=== PATIENT | male | born 1970 | race Caucasian/White ===

== ENCOUNTER 2017-11-27 13:06 | Emergency (ER) | payer SELFPAY ==
--- NOTE | 2017-11-27 14:20 | EDPHYS ---
Physician Documentation [facility] Name: Bere Hurst Age: 47 yrs Sex: Male : 1970 Arrival Date: 11/27/2017 Time: 13:08 Bed 14 Private MD: ED Physician Anthony Tanner HPI: 11/27 14:21 This 47 yrs old Male presents to ER via EMS with complaints of Doesn't Feel Right. jr8 14:21 Patient arrested earlier and in custody. Was brought to ED because he said he had high jr8 blood pressure and was not feeling right. Severity of symptoms: At their worst the symptoms were mild in the emergency department the symptoms have improved. The patient has not experienced similar symptoms in the past. The patient has not recently seen a physician. Historical: - Allergies: 13:13 No Known Allergies; hb - Home Meds: 13:13 None [Active]; hb - PMHx: 13:13 Atrial Fib; hb - PSHx: 13:13 None; hb - Immunization history:: Adult Immunizations up to date. - Social history:: Smoking status: Patient uses tobacco products, chewing tobacco. - Ebola Screening: : No symptoms or risks identified at this time. ROS: 14:21 Eyes: Negative for injury, pain, redness, and discharge, ENT: Negative for injury, jr8 pain, and discharge, Neck: Negative for injury, pain, and swelling, Cardiovascular: Negative for chest pain, palpitations, and edema, Respiratory: Negative for shortness of breath, cough, wheezing, and pleuritic chest pain, Abdomen/GI: Negative for abdominal pain, nausea, vomiting, diarrhea, and constipation, Back: Negative for injury and pain, MS/Extremity: Negative for injury and deformity, Skin: Negative for injury, rash, and discoloration, Neuro: Negative for headache, weakness, numbness, tingling, and seizure. Exam: 14:21 Head/Face: Normocephalic, atraumatic. Eyes: Pupils equal round and reactive to light, jr8 extra-ocular motions intact. Lids and lashes normal. Conjunctiva and sclera are non-icteric and not injected. Cornea within normal limits. Periorbital areas with no swelling, redness, or edema. ENT: Nares patent. No nasal discharge, no septal abnormalities noted. Tympanic membranes are normal and external auditory canals are clear. Oropharynx with no redness, swelling, or masses, exudates, or evidence of obstruction, uvula midline. Mucous membranes moist. Neck: Trachea midline, no thyromegaly or masses palpated, and no cervical lymphadenopathy. Supple, full range of motion without nuchal rigidity, or vertebral point tenderness. No Meningismus. Cardiovascular: Regular rate and rhythm with a normal S1 and S2. No gallops, murmurs, or rubs. Normal PMI, no JVD. No pulse deficits. Respiratory: Lungs have equal breath sounds bilaterally, clear to auscultation and percussion. No rales, rhonchi or wheezes noted. No increased work of breathing, no retractions or nasal flaring. Abdomen/GI: Soft, non-tender, with normal bowel sounds. No distension or tympany. No guarding or rebound. No evidence of tenderness throughout. Back: No spinal tenderness. No costovertebral tenderness. Full range of motion. Skin: Warm, dry with normal turgor. Normal color with no rashes, no lesions, and no evidence of cellulitis. MS/ Extremity: Pulses equal, no cyanosis. Neurovascular intact. Full, normal range of motion. Neuro: Awake and alert, GCS 15, oriented to person, place, time, and situation. Cranial nerves II-XII grossly intact. Motor strength 5/5 in all extremities. Sensory grossly intact. Cerebellar exam normal. Normal gait. Vital Signs: 13:13 BP 126 / 93; Pulse 88; Resp 16; Temp 98.2; Pulse Ox 100% on R/A; Pain 0/10; hb MDM: 13:50 Patient medically screened. [facility] 14:19 Data reviewed: vital signs, nurses notes, and as a result, I will discharge patient. [facility] Data interpreted: Pulse oximetry: on room air is 100 %. Interpretation: normal. Counseling: I had a detailed discussion with the patient and/or guardian regarding: the historical points, exam findings, and any diagnostic results supporting the discharge/admit diagnosis, the need for outpatient follow up, a family practitioner, to return to the emergency department if symptoms worsen or persist or if there are any questions or concerns that arise at home. 14:21 ED course: Patient refused blood work and all other interventions and only wanted jr8 something to eat. Patient alert and oriented to person, place, time, event. No acute distress. Blood pressure in no need of acute treatment. All other vitals are within normal limits. ECG normal. Patient started to become irate in ED because he was not being fed. Will release patient back to PD as there is no medical emergency and is refusing all interventions . 11/27 13:51 Order name: EKG - Nurse/Tech; Complete Time: 14:48 jr8 11/27 14:54 Order name: EKG Electrocardiogram EDMS Administered Medications: No medications were administered Disposition: 15:30 Co-signature as Attending Physician, Anthony Tanner MD. rn Disposition: 11/27/17 14:20 Discharged to Law Enforcement. Impression: Essential (primary) hypertension. - Condition is Stable. - Discharge Instructions: Hypertension. - Medication Reconciliation Form, Thank You Letter, Antibiotic Education, Prescription Opioid Use form. - Follow up: Private Physician; When: 2 - 3 days; Reason: Recheck today's complaints, Continuance of care, Re-evaluation by your physician. - Problem is new. - Symptoms are unchanged. Signatures: Dispatcher [employer] EDMS Anthony Tanner MD MD rn Roszak, Josh, PA PA jr8 Maddie Lott RN RN hb Corrections: (The following items were deleted from the chart) 14:20 14:20 11/27/2017 14:20 Discharged to Law Enforcement. Impression: Weakness. Condition jr8 is Stable. Forms are Medication Reconciliation Form, Thank You Letter, Antibiotic Education, Prescription Opioid Use. Follow up: Private Physician; When: 2 - 3 days; Reason: Recheck today's complaints, Continuance of care, Re-evaluation by your physician. Problem is new. Symptoms are unchanged. jr8 15:12 14:20 11/27/2017 14:20 Discharged to Law Enforcement. Impression: Essential (primary) hb hypertension. Condition is Stable. Forms are Medication Reconciliation Form, Thank You Letter, Antibiotic Education, Prescription Opioid Use. Follow up: Private Physician; When: 2 - 3 days; Reason: Recheck today's complaints, Continuance of care, Re-evaluation by your physician. Problem is new. Symptoms are unchanged. jr8
--- NOTE | 2017-11-27 14:20 | ER ---
Nurse's Notes [facility] Name: Bere Hurst Age: 47 yrs Sex: Male : 1970 Arrival Date: 11/27/2017 Time: 13:08 Bed 14 Private MD: Diagnosis: Essential (primary) hypertension Presentation: 11/27 13:09 Presenting complaint: EMS states: Doesn't feel right. Denies pain/SOB/nausea. Reports hb he consumed 2 glasses of wine approx 2 hour ago. Hx Afib. From [facility], handcuffed, officers at bedside. Transition of care: [facility]. Onset of symptoms was November 27, 2017. Risk Assessment: Do you want to hurt yourself or someone else? Patient reports no desire to harm self or others. Care prior to arrival: None. 13:09 Method Of Arrival: EMS: [facility] 13:09 Acuity: CASEY 3 hb 13:10 Initial Sepsis Screen: Does the patient meet any 2 criteria? No. Patient's initial hb sepsis screen is negative. Does the patient have a suspected source of infection? No. Patient's initial sepsis screen is negative. Triage Assessment: 13:10 General: Appears in no apparent distress. Behavior is agitated, uncooperative. Pain: hb Denies pain. Neuro: Level of Consciousness is awake, alert, Oriented to person, place, time, situation, Pupils are PERRLA. Cardiovascular: Capillary refill < 3 seconds Patient's skin is warm and dry. Respiratory: Airway is patent Trachea midline Respiratory effort is even, unlabored, Respiratory pattern is regular, symmetrical. 13:10 EENT: No signs and/or symptoms were reported regarding the EENT system. GI: No signs hb and/or symptoms were reported involving the gastrointestinal system. : No signs and/or symptoms were reported regarding the genitourinary system. Derm: No signs and/or symptoms reported regarding the dermatologic system. Skin is intact, is healthy with good turgor. Musculoskeletal: No signs and/or symptoms reported regarding the musculoskeletal system. Historical: - Allergies: 13:13 No Known Allergies; hb - Home Meds: 13:13 None [Active]; hb - PMHx: 13:13 Atrial Fib; hb - PSHx: 13:13 None; hb - Immunization history:: Adult Immunizations up to date. - Social history:: Smoking status: Patient uses tobacco products, chewing tobacco. - Ebola Screening: : No symptoms or risks identified at this time. Screenin:45 Abuse screen: Denies threats or abuse. Denies injuries from another. Nutritional hb screening: No deficits noted. Tuberculosis screening: No symptoms or risk factors identified. Fall Risk Total Summers Fall Scale indicates Low Risk Score (25-44 pts). Fall prevention measures have been instituted. Side Rails Up X 2 Frequent Obs/Assesments occuring As available Patient and Family Educated on Fall Prevention Program and strategies. Assessment: 13:10 General: see triage assessment. hb 13:28 Reassessment: inside lab at bedside for legal blood draw, pt refused. Officer remains hb at bedside. 14:02 Reassessment: Pt refusing bloodwork, PAT [place] aware. hb 14:10 Reassessment: No changes from previously documented assessment. Officer at bedside. hb 14:19 Reassessment: Code [employer] called to room,security at bedside, pt remains in police iw custody, pt has refused lab draw by Er staff, pt is screaming "I want a sandwich, you can't tell me I can't eat, [place]!" pt agitated, getting out of bed, remains in handcuffs. 14:30 Reassessment: Discharge ordered, pt refused to sign paperwork. Officer at bedside hb waiting for warrant for legal blood draw at this time. Vital Signs: 13:13 BP 126 / 93; Pulse 88; Resp 16; Temp 98.2; Pulse Ox 100% on R/A; Pain 0/10; hb ED Course: 13:08 Patient arrived in ED. hj 13:08 Maddie Lott, RN is Primary Nurse. hb 13:13 Triage completed. hb 13:50 Milda Britton PA is PHCP. jr8 13:50 Anthony Tanner MD is Attending Physician. jr8 14:14 Arm band placed on right wrist. hb 14:15 Patient has correct armband on for positive identification. Bed in low position. Call hb light in reach. Side rails up X2. 14:25 EKG done, by manager technical services. reviewed by Anthony Tanner MD. sm3 14:32 No provider procedures requiring assistance completed. Patient did not have IV access hb during this emergency room visit. Administered Medications: No medications were administered Outcome: 14:20 Discharge ordered by MD. seay 14:32 Discharged to Law Enforcement hb 14:32 Condition: stable 14:32 Instructed on discharge instructions. 15:12 Patient left the ED. hb Signatures: Teresa Reis RN GAUDENCIO Milad Britton PA PA jr8 Giacomo Obregon RN RN hj Baxter, Heather, RN RN Radha Lima 3 Corrections: (The following items were deleted from the chart) 14:47 13:10 General: Appears in no apparent distress. Behavior is agitated, uncooperative, hb hb 14:47 13:10 Cardiovascular: Capillary refill < 3 seconds Patient's skin is warm and dry. hb hb
--- NOTE | 2017-11-28 07:13 | EKG ---
Test Date: 2017-11-27 Test Time: 13:00:42 Printer Slotter Operator: GELA MEASUREMENT RESULTS: Intervals: Rate: 104 AK: 150 QRSD: 84 QT: 368 QTc: 483 [place]: P: 64 AK: 150 QRS: 1 T: 46 INTERPRETIVE STATEMENTS: Sinus tachycardia Possible Anterior infarct, age undetermined Abnormal ECG No previous ECG available for comparison Electronically Signed On 11-28-17 07:12:07 CDT by Mj Teague
== END 2017-11-27 15:12 ==
LOC: ER 13:06
DX: I10 Essential (primary) hypertension (principal); F17.220 Nicotine dependence, chewing tobacco, uncomplicated
CPT/HCPCS: 93005; 99283